=== PATIENT | female | born 1950 | race Hispanic/Latino ===

== ENCOUNTER 2021-10-17 14:07 | Emergency (ER) | payer MEDICARE, OTHER ==
[2021-10-17] MEDS ORDERED: HYDROcodone/ACETAMINOPHEN 5-325 MG TAB PO ONE (16:48)
--- NOTE | 2021-10-17 16:51 | Emergency Department Report ---
ED General Adult HPI - General Chief complaint: Dyspnea/Respdistress Stated complaint: DIFF BREATHING Time Seen by Provider: 10/17/21 16:46 Source: patient, EMS Mode of arrival: Stretcher Limitations: No Limitations - History of Present Illness Initial comments: 71-year-old female patient presents with complaints of sudden onset of shortness of breath this morning. Patient presents from [place]. She is currently there for SI. Patient states that she claimed to be suicidal upon getting discharge from [facility] so she would not have to go back to her fpc. Patient states she is not suicidal. She reports history of bipolar disorder and A. fib. She states she is also having dysuria and urinary frequency and that her recent discharge from [facility] was from a severe UTI. No chest pain initially, however patient states she is feeling some pressure in her chest currently. Patient is currently on Eliquis for her A. fib. She denies any history of DVT/PE/cancer, leg pain/swelling, or recent long travel. Severity scale (0 -10): 0 - Related Data Allergies Allergy/AdvReac Type Severity Reaction Status Date / Time No Known Allergies Allergy Unverified 10/17/21 15:26 ED Review of Systems ROS: Stated complaint: DIFF BREATHING Other details as noted in HPI Constitutional: denies: chills, diaphoresis, fever, malaise, weakness Respiratory: shortness of breath, SOB with exertion, SOB at rest. denies: cough Cardiovascular: as per HPI. denies: palpitations Gastrointestinal: denies: abdominal pain, nausea, vomiting, diarrhea Neurological: denies: headache ED Physical Exam - General Limitations: No Limitations General appearance: alert, in no apparent distress, obese - Head Head exam: Present: atraumatic, normocephalic - Eye Eye exam: Present: normal appearance. Absent: scleral icterus - Neck Neck exam: Present: normal inspection, full ROM - Respiratory Respiratory exam: Present: normal lung sounds bilaterally. Absent: respiratory distress, chest wall tenderness - Cardiovascular Cardiovascular Exam: Present: regular rate, normal rhythm. Absent: systolic murmur, diastolic murmur, rubs, gallop - GI/Abdominal GI/Abdominal exam: Present: soft. Absent: tenderness - Extremities Exam Extremities exam: Absent: calf tenderness (No pain or swelling noted) - Neurological Exam Neurological exam: Present: alert, oriented X3, normal gait - Psychiatric Psychiatric exam: Present: normal affect, normal mood - Skin Skin exam: Present: warm, dry, intact, normal color. Absent: rash ED Course Vital Signs 10/17/21 15:20 Temperature 98.4 F Pulse Rate 68 Respiratory 18 Rate Blood Pressure 118/50 [Left] O2 Sat by Pulse 97 Oximetry ED Medical Decision Making - Lab Data Result diagrams: 10/17/21 17:04 10/17/21 17:04 - EKG Data EKG shows normal: sinus rhythm Rate: normal - EKG Data When compared to previous EKG there are: no significant change Interpretation: other (Probable left atrial enlargement, left anterior fascicula r block) - Radiology Data Radiology results: report reviewed CHEST 2 VIEWS INDICATION / CLINICAL INFORMATION: SOB. COMPARISON: None available. FINDINGS: SUPPORT DEVICES: There is a dual chamber left subclavian ICD with the tips of the pacing leads overlying the right atrial appendage and right ventricular apex. HEART / MEDIASTINUM: The heart size and pulmonary vasculature are normal. LUNGS / PLEURA: No significant pulmonary or pleural abnormality. No pneumothorax. ADDITIONAL FINDINGS: There is prior vertebroplasty in the upper lumbar spine. IMPRESSION: No acute findings. - Medical Decision Making 71-year-old female patient presents with complaints of sudden onset of shortness of breath this morning. Patient presents from [place]. She is currently there for SI. Patient states that she claimed to be suicidal upon getting discharge from [facility] so she would not have to go back to her fpc. Patient states she is not suicidal. She reports history of bipolar disorder and A. fib. She states she is also having dysuria and urinary frequency and that her recent discharge from [facility] was from a severe UTI. No chest pain initially, however patient states she is feeling some pressure in her chest currently. Patient is currently on Eliquis for her A. fib. She denies any history of DVT/PE/cancer, leg pain/swelling, or recent long travel. White count is normal on CBC. Alk phos mildly elevated, however patient denies any abdominal pain or vomiting or stool changes. BNP is normal. Chest x-ray is normal. Patient states her shortness of breath has resolved. Vitals remained stable. UA does show urinary tract infection. Given recent infection, patient given Rocephin and 1 g IV. She reports that she does not do well with oral ant ibiotics and is unable to remember which antibiotic she was on recently. Given possibility of noncompliance, single dose of fosfomycin ordered. Urine culture is pending. She is otherwise well-appearing and stable for discharge back to [place]. Strict return precautions discussed in detail with patient who verbalizes understand. Discussed follow-up with primary care within 3 days Critical care attestation.: If time is entered above; I have spent that time in minutes in the direct care of this critically ill patient, excluding procedure time. ED Disposition Clinical Impression: UTI (urinary tract infection), Shortness of breath Disposition: 01 HOME / SELF CARE / HOMELESS Is pt being admited?: No Condition: Stable Instructions: Shortness of Breath, Adult, Urinary Tract Infection, Adult, [id number] Referrals: PRIMARY CARE, [Referring] - 2-3 Days
--- NOTE | 2021-10-17 17:04 | XRay Report ---
CHEST 2 VIEWS INDICATION / CLINICAL INFORMATION: SOB. COMPARISON: None available. FINDINGS: SUPPORT DEVICES: There is a dual chamber left subclavian ICD with the tips of the pacing leads overly ing the right atrial appendage and right ventricular apex. HEART / MEDIASTINUM: The heart size and pulmonary vasculature are normal. LUNGS / PLEURA: No significant pulmonary or pleural abnormality. No pneumothorax. ADDITIONAL FINDINGS: There is prior vertebroplasty in the upper lumbar spine. IMPRESSION: No acute findings. Signer Name: René Hernandez MD Signed: 10/17/2021 4:59 PM Workstation Name: [id number]
[2021-10-17 18:34] LABS: Alanine Aminotransferase 27 units/L (7-56); Albumin 3.7 g/dL (3.9-5); Blood Urea Nitrogen 12 mg/dL (7-17); Calcium 10.8 mg/dL (8.4-10.2); Hemolysis Index 24
[2021-10-17 18:41] LABS: BUN/Creatinine Ratio 17
[2021-10-17 19:10] LABS: Hematocrit 44.5 % (30.3-42.9); Hemoglobin 14.6 gm/dl (10.1-14.3); Mean Corpuscular HGB Conc 33 % (30-34); Mean Corpuscular Volume 94 fl (79-97); Red Blood Count 4.73 M/mm3 (3.65-5.03); Red Cell Distribution Width 14.6 % (13.2-15.2)
[2021-10-17 19:36] LABS: Bilirubin,Urine Negative (Negative); Blood,Urine Moderate (Negative); Color,Urine Yellow (Yellow); PH,Urine 6.5 (5.0-7.0); Protein,Urine <30 mg dL mg/dL (Negative); Urobilinogen,Urine < 2.0 mg/dL (<2.0)
[2021-10-17] MEDS ORDERED: cefTRIAXone/NS 1 GM/50 ML 1 GM/50 ML BAG IV ONE (19:45)
[2021-10-17 20:01] LABS: Basophils # (Auto) 0.1 K/mm3 (0.0-0.1); Eosinophils # (Auto) 0.1 K/mm3 (0.0-0.4); Monocytes # (Auto) 0.8 K/mm3 (0.0-0.8)
[2021-10-17 20:07] LABS: Platelet Count 197 K/mm3 (140-440)
[2021-10-17 20:08] LABS: Eosinophils % (Auto) 0.8 % (0.0-4.3); Lymphocytes % (Auto) 23.3 % (13.4-35.0); Monocytes % (Auto) 8.4 % (0.0-7.3)
[2021-10-17 20:09] LABS: Basophils % (Auto) 1.2 % (0.0-1.8); Lymphocytes # (Auto) 2.4 K/mm3 (1.2-5.4)
[2021-10-17] MEDS ORDERED: FOSFOMYCIN TROMETHAMINE 3 GM PACKET PO ONE (20:45)
[2021-10-17 20:55] VITALS: BP 166/69
--- NOTE | 2021-10-19 19:33 | Electrocardiograph Report ---
[facility] Test Date: 2021-10-17 Test Time: 17:48:27 Pat Name: BRADFORD RODGERS Department: Room: Gender: F Rn Testing: ZACKERY : 1950 Requested By: SHARYN MORALES Order Number: [id number] Reading MD: Win Restrepo Measurements Intervals [place] Rate: 82 P: 0 FL: 75 QRS: 20 QRSD: 82 T: 30 QT: 395 QTc: 460 Interpretive Statements Sinus rhythm No previous ECG available for comparison Electronically Signed On 10-19-2021 19:33:12 EDT by Win Restrepo
== END 2021-10-17 23:11 | disposition home or self-care (01) ==
LOC: ED 14:07
DX: R06.02 Shortness of breath (principal); N39.0 Urinary tract infection, site not specified
CPT/HCPCS: 36415; 71046; 80053; 81001; 83880; 84484; 85025; 93005; 96365; 99284; J0696; 87086